=== PATIENT | female | born 1990 | race Caucasian/White ===

== ENCOUNTER 2017-03-18 20:11 | Inpatient (IN) | payer OTHER ==
[~2017-03-18] VITALS: Ht 165.1 cm; Wt 108.3 kg
[~2017-03-18 20:11] MED LIST: CIPR500T4 PO; HYDR-906 PO; PHEN-538 PO; PREN1TAB49 PO
[2017-03-18 20:49] VITALS: BP 118/66; PULSE 60; RESP 18
--- NOTE | 2017-03-18 21:37 | RADRPT ---
PROCEDURE: US OB biophysical profile. CLINICAL INDICATION: decreased movements, contractions TECHNIQUE: Multiple sonographic images of the pelvis were obtained. The images were reviewed on a PACS workstation. COMPARISON: No prior studies are available for comparison. FINDINGS: There is a single viable intrauterine gestation. Cardiac activity is present with 139 beats per min wiyot. There is a vertex presentation. The placenta is anterior. There is no evidence of placental abruption. There is a normal amount of amniotic fluid with an ERLIN = 13.3 cm. Biophysical profile: movement 2/2 tone 2/2. breathing 2/2 ERLIN 2/2 Total 12/15 RPTAT: AA . IMPRESSION: Normal biophysical profile. . .Mich Rodriguez MD, MD Date Time Electronically viewed and signed by .Mich Rodriguez MD, MD on 03/18/2017 21:36 .S/
[2017-03-18 21:44] LABS: ADD UMIC YES; UR ASCORBIC ACID NEGATIVE (NEGATIVE); UR BACTERIA FEW /HPF (NONE SEEN); UR BILIRUBIN (Dip) NEGATIVE (NEGATIVE); UR BLOOD (Dip) NEGATIVE (NEGATIVE); UR CLARITY SLIGHTLY CLOUDY (CLEAR); UR COLOR YELLOW (YELLOW); UR GLUCOSE (Dip) NEGATIVE (NEGATIVE); UR KETONES (Dip) NEGATIVE (NEGATIVE); UR LEUKOCYTE ESTERASE (Dip) TRACE Leu/ul (NEGATIVE); UR NITRITE (Dip) NEGATIVE (NEGATIVE); UR RBC 1 /HPF (0-5); UR SPECIFIC GRAVITY (Dip) 1.006 (1.003-1.030); UR SQUAMOUS EPITHELIAL CELL MODERATE /HPF (FEW); UR TOTAL PROTEIN (Dip) NEGATIVE (NEGATIVE); UR UROBILINOGEN (Dip) NEGATIVE (NEGATIVE)
[2017-03-18] MEDS ORDERED: METHYLERGONOVINE 0.2 MG INJ IM PRN (22:00)
[2017-03-18] MEDS ORDERED: LIDOCAINE 1% (MPF) 30 ML INJ INJ PRN (22:00)
[2017-03-18] MEDS ORDERED: OXYTOCIN 30 UNITS/LR 500 ML IV SCH ×3 (22:00)
[2017-03-18] MEDS ORDERED: CARBOPROST 250 MCG INJ IM PRN (22:00)
[2017-03-18] MEDS ORDERED: IBUPROFEN 600 MG TAB PO PRN (22:00)
[2017-03-18] MEDS ORDERED: AMPICILLIN 2 GM/NS (PMX) 100 ML IV ONE (22:00)
[2017-03-18] MEDS ORDERED: OXYTOCIN 30 UNITS/LR 500 ML IV PRN (22:00)
[2017-03-18] MEDS ORDERED: BUTORPHANOL 2 MG INJ IV PRN (22:00)
[2017-03-18] MEDS ORDERED: MISOPROSTOL 200 MCG TAB PR PRN (22:00)
[2017-03-18] MEDS: LACTATED RINGER'S 1,000 ML IV SCH (22:27)
--- NOTE | 2017-03-18 22:29 | TRIAGE ---
OB Triage Datetime Report Generated by CPN: 03/18/2017 22:29 Datetime: 03/18/2017 22:16 Assessment Type: Admission Assessment Vaginal Bleeding: None Maternal Assessment Level of Consciousness: Fully Conscious DTR's/Clonus: DTRs 2+; No Clonus Headache: Denies Blurred Vision: No Respiratory Effort: Unlabored; Regular Rhythm; Equal Expansion Breath Sounds, Left: Clear and Equal Breath Sounds, Right: Clear and Equal Nausea/Vomiting: Denies RUQ Epigastric Pain: Denies Lower Extremities Edema: None Upper Extremities Edema: None Facial Edema: None Fall Risk Assessment History of Falling: (0) No Secondary Diagnosis: (0) No Ambulatory Aid: (0) Bedrest/Nurse Assist IV Therapy: (0) No Gait: (0) Normal/Bedrest/Immobile Mental Status: (0) Oriented to Own Ability Fall Score: 0 Fall Risk Score Definition: No Risk: No action required Pain Assessment Pain Scale: 3 Pain Presence: Intermittent Pain Type: Cramping Pain Location: Abdomen Pain Goal: 5 Membrane Status: Ruptured Membranes Ruptured Date/Time: 03/18/2017 21:00 Membranes Rupture Method: Spontaneous Amniotic Fluid Color: Clear Amniotic Fluid Amount: Moderate Nitrazine: Positive ROM Test Kit: Negative Datetime: 03/18/2017 21:49 Membrane Status: Ruptured Datetime: 03/18/2017 21:10 Stage of : OB Triage Datetime: 03/18/2017 21:03 Stage of : OB Triage Vaginal Exam Dilatation (cms): 0.5 Effacement (%): 50 Station: -3 Exam By: E Malcolm Amniotic Fluid Odor: None Vaginal Bleeding: None Pool: Negative Cervix, Consistency: Moderate Cervix, Position: Posterior Datetime: 03/18/2017 21:00 Stage of : OB Triage Labor Evaluation Frequency: 4-15 Monitor Mode: External Duration (sec)2399: 50-80 Quality: Moderate Pattern: Normal: <= 5 Contractions in 10 Minutes Resting Tone [place]: Relaxed Heart Rate FHR Baseline Rate: 140 Monitor Mode: External US FHR Baseline Changes: No Baseline Change Variability: Moderate 6-25 bpm Accelerations: 15X15 Decelerations: None Category: Category I Datetime: 03/18/2017 20:51 Time of Arrival: 03/18/2017 20:09 EGA: 38.1 Arrived By: Ambulatory Arrived From: Home Chief Complaint: c/o ucs and vag pressure. Denies hx problems this . No PNR avail Movement: Present Contractions: Regular Time Contractions Began: 03/18/2017 17:00 Contractions: q5 Rupture of Membranes: Denies Vaginal Bleeding: None Vaginal Discharge: Denies Recent Sexual Intercouse: Denies Abdominal Trauma: Not Applicable Patient Complaints: Contractions Time Provider Notified: 03/18/2017 21:10 Provider Notified: Dr Sullivan Initial Plan: EFM,SVE Datetime: 03/18/2017 20:23 Stage of : OB Triage Maternal Assessment Level of Consciousness: Fully Conscious Headache: Denies Blurred Vision: No Respiratory Effort: Unlabored Nausea/Vomiting: Denies RUQ Epigastric Pain: Denies Facial Edema: None Labor Evaluation Frequency: placed Monitor Mode: External Resting Tone [place]: Relaxed Heart Rate FHR Baseline Rate: 140 Monitor Mode: External US Pain Assessment Pain Scale: 5 Pain Presence: Intermittent Pain Type: Contraction Pain Location: Abdomen
[2017-03-18 22:40] LABS: ABNORMAL IP MESSAGE 1; BASOPHIL # 0.1 10^3/ul (0.0-0.1); BASOPHILS % 0.3 % (0.0-2.0); EOSINOPHILS # 0.2 10^3/ul (0.0-0.5); EOSINOPHILS % 1.4 % (0.0-7.0); HEMATOCRIT 36.1 % (37.0-47.0); HEMOGLOBIN 12.2 g/dl (12.0-16.0); LYMPHOCYTES # 3.1 10^3/ul (0.8-2.9); LYMPHOCYTES % 21.1 % (15.0-51.0); MEAN CORPUSCULAR HEMOGLOBIN 28.6 pg (29.0-33.0); MEAN CORPUSCULAR HGB CONC 33.8 g/dl (32.0-37.0); MEAN CORPUSCULAR VOLUME 84.7 fl (82.0-101.0); MONOCYTE # 1.2 10^3/ul (0.3-0.9); NEUTROPHIL # 10.1 10^3/ul (1.6-7.5); NEUTROPHILS % 68.7 % (39.0-77.0); PLATELET COUNT 238 10^3/UL (140-415); RED BLOOD COUNT 4.26 10^6/ul (4.20-5.40); RED CELL DISTRIBUTION WIDTH 14.6 % (11.5-14.5); WHITE BLOOD COUNT 14.7 10^3/ul (4.8-10.8)
[2017-03-18 22:41] LABS: MEAN PLATELET VOLUME 13.7 fl (7.4-10.4); POSITIVE DIFF @See below
[2017-03-18 22:53] LABS: INR 0.85; PROTIME 11.6 Sec (12.2-14.2); PT RATIO 0.9
[2017-03-18 22:54] LABS: PARTIAL THROMBOPLASTIN TIME 25.5 Sec (25.0-35.0)
[2017-03-18] MEDS ORDERED: LACTATED RINGER'S 1,000 ML IV PRN (23:00)
--- NOTE | 2017-03-19 | HP ---
Date/Time of Note Date/Time of Note DATE: 03/18/17 TIME: 23:46 OB - History Hx of Present Free Text/Dictation 26y.o A(Iab) at triage with pelvic pressure,srom with gush of fluid while in triage VE ftp/50%/-3 spec exam no pooling GBS pos ROM PLUS sent\ ERLIN 13 admitted for expectant management with ampicillin for possible SROM which was observed in triage Chief Complaint: srom Estimated Due Date: Mar 31, 2017 : 5 Para: 3 Spontaneous : 0 Therapeutic : 1 Care: Other Ultrasounds: No ultrasounds, Normal mid trimester US Obstetrical Complications: None Medical Complications: None Past Family/Social History * Past Medical, Surgical, Family and Obstetric Histories reviewed from chart. Blood Type: O+ Rubella: immune RPR/VDRL: Negative GBS Status: Positive HBsAG: Negative OB Admission Exam Vital Signs Vital Signs Vital Signs Date Time Temp Pulse Resp B/P Pulse Ox O2 Delivery O2 Flow Rate FiO2 03/18/17 20:49 97.7 60 18 118/66 Room Air Physical Exam HEENT: WNL Heart: Rhythm Normal Lungs: Clear, Equal Abdomen: WNL Extremities: Normal Reflexes: Normal Cervical Dilatation: Fingertip Effacement: 50% Station: -3 Membranes: Ruptured Amniotic Fluid: Clear Heart Rate: 140's Decelerations: No Decelerations Varibility: Moderate Contractions on Admission: 6-10 Minutes Apart Intensity: Mild Last 72 hours Lab Results CBC & BMP 03/18/17 22:00 OB Assessment/Plan Reason for admission: rupture of membranes Other Assessment: [id number] Plan: Expectant Management Other plan: ampicillin for GBS TRI Art MD Mar 18, 2017 23:57
[2017-03-19] MEDS: AMPICILLIN 1 GM/NS (PMX) 50 ML IV SCH ×2 (01:59→06:06)
[2017-03-19] MEDS: LACTATED RINGER'S 1,000 ML IV SCH (06:42)
--- NOTE | 2017-03-19 08:25 | LDN ---
Date/Time of Note Date/Time of Note DATE: 03/19/17 TIME: 08:16 Delivery Summary Normal spontaneous vaginal delivery(by ) of a boy from OA position shoulders delivered without any difficulty rest of the baby's body followed, cord clamped after stopped pulsation, placenta spontaneous expulsion inspected complete, patient sustained a small first-degree perineal laceration repaired with 3-0 chromic catgut, estimated blood loss 100 cc Weeks of Gestation 38 weeks 2 days Placenta Delivered: Spontaneously Meconium: none Episiotomy: No Laceration repair: First-degree perineal laceration Anesthesia type: Local Sponge & Needle done & correct: Yes All needle counts correct: Yes Any foreign bodies felt in the: No Problems: Delivery Information Sex Infant Sex: male Apgars 1 Minute: 9 5 Minute: 9 Suctioning Nose & mouth suctioned at marsha: Yes Delee suction performed: No Umbilical Cord Umbilical cord with: 3 Vessels Cord presentations: nuchal cord Cord Blood was obtained: Yes ANTHONY CARD MD Mar 19, 2017 08:25
[2017-03-19 10:15] VITALS: BP 110/55; PULSE 65; RESP 18
[2017-03-19] MEDS ORDERED: CARBOPROST 250 MCG INJ IM PRN (10:30)
[2017-03-19] MEDS ORDERED: HYDROCODONE/APAP (5/325) TAB PO PRN ×2 (10:30)
[2017-03-19] MEDS ORDERED: ONDANSETRON 4 MG INJ IV PRN (10:30)
[2017-03-19] MEDS ORDERED: METHYLERGONOVINE 0.2 MG INJ IM PRN (10:30)
[2017-03-19] MEDS ORDERED: WITCH HAZEL/GLYCERIN PAD PR PRN (10:30)
[2017-03-19] MEDS ORDERED: BENZOCAINE 20% 56 ML SPRAY TOP PRN (10:30)
[2017-03-19] MEDS ORDERED: MISOPROSTOL 200 MCG TAB PR PRN (10:30)
[2017-03-19] MEDS ORDERED: ACETAMINOPHEN 325 MG TAB PO PRN (10:30)
[2017-03-19] MEDS ORDERED: METHYLERGONOVINE 0.2 MG TAB PO PRN (10:30)
[2017-03-19] MEDS ORDERED: DIBUCAINE 1% 30 GM OINT PR PRN (10:30)
[2017-03-19] MEDS ORDERED: OXYTOCIN 30 UNITS/LR 500 ML IV PRN (10:30)
[2017-03-19] MEDS ORDERED: LANOLIN 7 GM TUBE TOP PRN (10:30)
[2017-03-19] MEDS ORDERED: OXYCODONE/ASPIRIN (4.88/325) TAB PO PRN ×2 (10:30)
[2017-03-19 11:32] VITALS: BP 105/56; PULSE 64; RESP 18
[2017-03-19] MEDS: OXYTOCIN 30 UNITS/LR 500 ML IV SCH ×2 (12:05→14:06)
[2017-03-19] MEDS: IBUPROFEN 600 MG TAB PO SCH ×2 (12:06→18:15)
[2017-03-19 16:00] VITALS: BP 109/63; PULSE 73; RESP 18
[2017-03-19 20:00] VITALS: BP 109/56; PULSE 61; RESP 20
[2017-03-19] MEDS: SENNA/DOCUSATE NA (8.6MG/50MG) TAB PO SCH (21:58)
[2017-03-20 00:15] VITALS: BP 104/54; PULSE 66; RESP 20
[2017-03-20] MEDS: IBUPROFEN 600 MG TAB PO SCH ×5 (00:41→23:49)
[2017-03-20 04:30] VITALS: BP 105/56; PULSE 63; RESP 20
[2017-03-20 07:50] VITALS: BP 102/57; PULSE 58; RESP 16
[2017-03-20 08:35] LABS: ABNORMAL IP MESSAGE 1; BASOPHIL # 0.1 10^3/ul (0.0-0.1); BASOPHILS % 0.5 % (0.0-2.0); EOSINOPHILS # 0.2 10^3/ul (0.0-0.5); EOSINOPHILS % 2.2 % (0.0-7.0); HEMATOCRIT 31.9 % (37.0-47.0); HEMOGLOBIN 10.4 g/dl (12.0-16.0); LYMPHOCYTES # 3.2 10^3/ul (0.8-2.9); LYMPHOCYTES % 29.2 % (15.0-51.0); MEAN CORPUSCULAR HEMOGLOBIN 28.2 pg (29.0-33.0); MEAN CORPUSCULAR HGB CONC 32.6 g/dl (32.0-37.0); MEAN CORPUSCULAR VOLUME 86.4 fl (82.0-101.0); MEAN PLATELET VOLUME 13.4 fl (7.4-10.4); MONOCYTE # 0.7 10^3/ul (0.3-0.9); MONOCYTES % 6.6 % (0.0-11.0); NEUTROPHIL # 6.7 10^3/ul (1.6-7.5); NEUTROPHILS % 60.8 % (39.0-77.0); PLATELET COUNT 195 10^3/UL (140-415); RED BLOOD COUNT 3.69 10^6/ul (4.20-5.40); RED CELL DISTRIBUTION WIDTH 14.9 % (11.5-14.5); WHITE BLOOD COUNT 11.1 10^3/ul (4.8-10.8)
[2017-03-20 08:52] LABS: POSITIVE DIFF @See below
[2017-03-20] MEDS: SENNA/DOCUSATE NA (8.6MG/50MG) TAB PO SCH ×2 (09:00→20:47)
--- NOTE | 2017-03-20 12:53 | QN ---
Documentation Comment ppd1 ppt doing well vss exam wnla/p ppd1 continue care GWEN GARRETT MD Mar 20, 2017 12:53
[2017-03-20 16:06] VITALS: BP 107/56; PULSE 73; RESP 16
[2017-03-20 19:45] VITALS: BP 101/61; PULSE 70; RESP 18
[2017-03-21 04:15] VITALS: BP 111/55; PULSE 66; RESP 18
[2017-03-21] MEDS: IBUPROFEN 600 MG TAB PO SCH ×2 (05:29→11:32)
[2017-03-21 07:30] VITALS: BP 111/65; PULSE 62; RESP 16
[2017-03-21] MEDS ORDERED: MEASLES,MUMPS,RUBELLA VACCINE INJ SC* ONE (09:00)
[2017-03-21] MEDS: SENNA/DOCUSATE NA (8.6MG/50MG) TAB PO SCH (09:02)
--- NOTE | 2017-03-21 09:44 | PD.PPDC ---
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
--- NOTE | 2017-03-21 09:46 | DS ---
Date/Time of Note Date/Time of Note DATE: 03/21/17 TIME: 09:45 Discharge Summary Admission/Discharge Info Admit Date/Time Mar 18, 2017 at 21:45 Discharge Date/Time March 21, 2017 at 945 Discharge Diagnosis Post normal vaginal delivery day 2 Patient Condition: Good Procedures Normal vaginal delivery Hx of Present Illness Term in labor Hospital Course Satisfactory uneventful Home Meds Reported Medications Vits W-Ca,Fe,Fa(<1MG) () 1 Tab Tablet, 1 TAB PO DAILY 03/30/11 Discontinued Scripts Hydrocodone/Acetaminophen (Brutus 5-325 Tablet) 1 Each Tablet, 1 TAB PO Q6H Y for PAIN, #20 TAB Prov:MILE ALFARO NP 01/31/16 Phenazopyridine Hcl* (Pyridium*) 200 Mg Tab, 200 MG PO TID Y for URINARY PAIN, # 6 TAB Prov:MILE ALFARO NP 01/31/16 Ciprofloxacin Hcl* (Ciprofloxacin Hcl*) 500 Mg Tablet, 500 MG PO BID for 10 Days , TAB Prov:MILE ALFARO NP 01/31/16 Follow-up Plan instructions given recommended to make appointment to be seen at the clinic in 2 weeks Primary Care Provider Care Physician No Primary Time spent on discharge: < 30 minutes ANTHONY CARD MD Mar 21, 2017 09:46
== END 2017-03-21 15:03 | disposition home or self-care (01) | DRG 775 ==
LOC: OBT 20:11 → L-D 20:13 → OBT 21:45 → L-D 21:45 → PP1 03-19 10:02
PROVIDERS: ADMIT Obstetrics & Gynecology; ATTEND Obstetrics & Gynecology
PROC: 10E0XZZ Delivery of Products of Conception, External Approach (ICD-10-PCS; principal; 2017-03-19)
PROC: 0HQ9XZZ Repair Perineum Skin, External Approach (ICD-10-PCS; 2017-03-19)
PROC: 3E033VJ Introduction of Other Hormone into Peripheral Vein, Percutaneous Approach (ICD-10-PCS; 2017-03-19)
DX: O69.81X0 Labor and delivery complicated by cord around neck, without compression, not applicable or unspecified (principal); O70.0 First degree perineal laceration during delivery; Z3A.38 38 weeks gestation of pregnancy; Z37.0 Single live birth
CPT/HCPCS: 76818; 81001; 84112; 85025; 85610; 85730; 86592; 86900; 86901; 87340; G0463; J0290; J0595; J2590; J7120